=== PATIENT | female | born 1975 ===

== ENCOUNTER 2024-06-11 18:39 | Emergency (ER) | payer OTHER ==
[2024-06-11 19:17] LABS: BASOPHILS ABSOLUTE AUTO 0.1 x10-3/uL (0.0-0.1); BASOPHILS PERCENT AUTO 1.4 % (0.2-1.5); EOSINOPHILS ABSOLUTE AUTO 0.6 x10-3/uL (0.0-0.8); EOSINOPHILS PERCENT AUTO 7.4 % (0.6-8.1); HEMATOCRIT 42.7 % (34.2-48.2); LYMPHOCYTES ABSOLUTE AUTO 1.9 x10-3/uL (1.0-4.4); LYMPHOCYTES PERCENT AUTO 23.3 % (18.4-52.1); MEAN CORPUSCULAR HEMOGLOBIN 30.9 pg (23.9-33.9); MEAN CORPUSCULAR HGB CONC 35.2 g/dL (31.9-34.8); MEAN PLATELET VOLUME 7.7 fL (7.1-12.4); MONOCYTES ABSOLUTE AUTO 0.6 x10-3/uL (0.3-1.0); MONOCYTES PERCENT AUTO 7.5 % (4.4-15.7); NEUTROPHILS PERCENT AUTO 60.4 % (30.8-76.2); PLATELET COUNT,PLT 370 x10(3)uL (151-488); RED BLOOD CELL COUNT 4.85 x10(6)uL (3.60-5.20); RED CELL DISTRIBUTION WIDTH 13.1 % (12.3-16.5); WHITE BLOOD CELL COUNT,WBC 8.2 x10-3/uL (3.0-10.3)
[2024-06-11 19:18] LABS: BLOOD UREA NITROGEN,BUN 13 mg/dL (7-18); CALCIUM 8.8 mg/dL (8.6-10.2); CARBON DIOXIDE,CO2 26 mmol/L (21-32); CHLORIDE,CL 101 mmol/L (100-110); EST CRCL DRUG DOSING (CG) 63.01 mL/min; ESTIMATED GFR 69 mL/min (>60); GLUCOSE RANDOM 140 mg/dL (80-116); POTASSIUM,K 3.6 mmol/L (3.5-5.3); SODIUM,NA 138 mmol/L (135-145)
[2024-06-11 19:24] LABS: A/G RATIO 0.8; ALANINE AMINOTRANSFERASE,ALT 35 U/L (12-36); ALBUMIN 3.4 g/dL (3.5-5.2); ALKALINE PHOSPHATASE 78 IU/L (56-112); ASPARTATE AMNIOTRANSFERASE,AST 25 IU/L (5-25); BILIRUBIN TOTAL 0.3 mg/dL (0.1-1.3); PROTEIN TOTAL,TP 7.7 g/dL (6.0-8.0)
[2024-06-11] MEDS: Sodium Chloride 0.9% 1,000 ML IV SCH (19:25)
[2024-06-11 19:33] LABS: TSH ULTRASENSITIVE 0.43 IU/mL (0.36-3.74)
[2024-06-11] MEDS: Iopamidol 755 Mg/ML 100 ML Bottle IV ONE (21:21)
== END 2024-06-11 22:44 | disposition home or self-care (01) ==
LOC: FB.ED 18:39
DX: R00.2 Palpitations (principal); Z91.040 Latex allergy status; Z79.899 Other long term (current) drug therapy
CPT/HCPCS: 36415; 71046; 71275; 80053; 83735; 83880; 84443; 84484; 85025; 85379; 96360; 96361; 99285; J7030; Q9967